=== PATIENT | male | born 1950 | race Caucasian/White ===

== ENCOUNTER 2018-12-08 14:16 | Emergency (ER) | payer OTHER ==
[~2018-12-08] VITALS: Ht 167.6 cm; Wt 70.3 kg
[~2018-12-08 14:16] MED LIST: ASPI325; ATOR20 PO; Aspirin EC81 MG; CLOP75 PO; HEARTBURN MED; HTN; ISON300 PO; LISI5; LISI5 PO; MULTI VITAMIN1 EACH PO; OMEPRAZOLE MAGN20 MG PO; SLEEPING MED; STOOL SOFTENER1 EAC2 PO; TAMS.4ER PO; VITORIN; vytorin
[2018-12-08 14:54] LABS: International Normalized Ratio 1.02; Prothrombin Time Results 10.8 Sec (9.7-11.5)
[2018-12-08] MEDS ORDERED: HYDR1TAB94 PO (15:52)
== END 2018-12-08 16:25 | disposition home or self-care (01) ==
LOC: ER 14:16
PROVIDERS: Emergency Medicine
DX: S51.011A Laceration without foreign body of right elbow, initial encounter (principal); S60.222A Contusion of left hand, initial encounter; S60.312A Abrasion of left thumb, initial encounter; S80.211A Abrasion, right knee, initial encounter; S40.812A Abrasion of left upper arm, initial encounter; S40.811A Abrasion of right upper arm, initial encounter; Z79.02 Long term (current) use of antithrombotics/antiplatelets; Z79.899 Other long term (current) drug therapy; Z79.82 Long term (current) use of aspirin; V20.4XXA Motorcycle driver injured in collision with pedestrian or animal in traffic accident, initial encounter
CPT/HCPCS: 71046; 73130; 85610; 90471; 90714; 99284-25; A9270-GY

== ENCOUNTER 2020-01-07 09:10 | Emergency (ER) | payer OTHER ==
[~2020-01-07] VITALS: Ht 167.6 cm; Wt 70.3 kg
[~2020-01-07 09:10] MED LIST changes: +HYDR1TAB94 PO
[2020-01-07] MEDS ORDERED: HYDR1TAB94 PO (09:42)
[2020-01-07] MEDS ORDERED: PRED20 PO (09:43)
== END 2020-01-07 10:19 | disposition home or self-care (01) ==
LOC: ER 09:10
DX: S49.91XA Unspecified injury of right shoulder and upper arm, initial encounter (principal); I25.810 Atherosclerosis of coronary artery bypass graft(s) without angina pectoris; Z92.89 Personal history of other medical treatment; Z99.0 Dependence on aspirator; Z95.1 Presence of aortocoronary bypass graft; X50.0XXA Overexertion from strenuous movement or load, initial encounter
CPT/HCPCS: 73030; 99283-25; J1100

== ENCOUNTER 2020-11-28 01:26 | Emergency (ER) | payer OTHER ==
[~2020-11-28] VITALS: Ht 167.6 cm; Wt 77.1 kg
[~2020-11-28 01:26] MED LIST changes: +PRED20 PO
[2020-11-28] MEDS ORDERED: EUTHYROX50 MCG (01:34)
[2020-11-28] MEDS ORDERED: ISODIN10 (01:36)
[2020-11-28] MEDS ORDERED: CYCL10 PO (01:47)
[2020-11-28] MEDS ORDERED: LIDO700A20 TOP (01:47)
== END 2020-11-28 02:30 | disposition home or self-care (01) ==
LOC: ER 01:26
DX: M54.41 Lumbago with sciatica, right side (principal); I10 Essential (primary) hypertension; I25.2 Old myocardial infarction; Z95.1 Presence of aortocoronary bypass graft; Z79.899 Other long term (current) drug therapy; Z79.890 Hormone replacement therapy; Z79.02 Long term (current) use of antithrombotics/antiplatelets
CPT/HCPCS: 96372-59; 99283-25; A9270; J1170; J1885

== ENCOUNTER 2021-07-11 19:08 | Emergency (ER) | payer OTHER ==
[~2021-07-11] VITALS: Ht 167.6 cm; Wt 74.8 kg
[~2021-07-11 19:08] MED LIST changes: +CYCL10 PO; +EUTHYROX50 MCG; +ISODIN10; +LIDO700A20 TOP
== END 2021-07-11 21:17 | disposition home or self-care (01) ==
LOC: ER 19:08
DX: S06.0X0A Concussion without loss of consciousness, initial encounter (principal); I10 Essential (primary) hypertension; I25.2 Old myocardial infarction; Z79.899 Other long term (current) drug therapy; W22.8XXA Striking against or struck by other objects, initial encounter
CPT/HCPCS: 70450; 96372; 99283-25; J1885

== ENCOUNTER 2023-04-20 13:28 | Day surgery (SDC) | payer OTHER ==
[~2023-04-20] VITALS: Ht 167.6 cm; Wt 70.3 kg
[2023-04-20] MEDS ORDERED: DOCU100 (13:49)
[2023-04-20] MEDS ORDERED: ASPIR 8181 M1 (13:49)
[2023-04-20] MEDS ORDERED: TEMA15 (13:50)
[2023-04-20] MEDS ORDERED: LORA10ER (13:50)
[2023-04-20] MEDS ORDERED: PANT20 (13:50)
[2023-04-20 15:15] VITALS: BP 97/67
--- NOTE | 2023-04-20 15:17 | NUR ---
04/20/23 1517 Silvia Whalen IV DC'D. CATH INTACT. PT TOLERATED WELL. COBAN/GAUZE IN PLACE
== END 2023-04-20 15:17 | disposition home or self-care (01) ==
LOC: ORSCSDS 13:28
PROVIDERS: Specialist
PROC: 0DJD8ZZ Inspection of Lower Intestinal Tract, Via Natural or Artificial Opening Endoscopic (ICD-10-PCS; principal; 2023-04-20 14:45)
PROC: 0DB68ZX Excision of Stomach, Via Natural or Artificial Opening Endoscopic, Diagnostic (ICD-10-PCS; principal; 2023-04-20 14:45)
DX: Z12.11 Encounter for screening for malignant neoplasm of colon (principal); Z86.010 Personal history of colon polyps; K21.9 Gastro-esophageal reflux disease without esophagitis; K29.70 Gastritis, unspecified, without bleeding; K57.30 Diverticulosis of large intestine without perforation or abscess without bleeding; K44.9 Diaphragmatic hernia without obstruction or gangrene; K64.8 Other hemorrhoids; I25.10 Atherosclerotic heart disease of native coronary artery without angina pectoris; I25.2 Old myocardial infarction; E03.9 Hypothyroidism, unspecified; E78.5 Hyperlipidemia, unspecified; E78.00 Pure hypercholesterolemia, unspecified; I10 Essential (primary) hypertension; Z79.82 Long term (current) use of aspirin; Z79.02 Long term (current) use of antithrombotics/antiplatelets; Z79.899 Other long term (current) drug therapy
CPT/HCPCS: 43239; G0105; 88305; 88342; J0461; J2001; J2405; J2704; J7120; Q9968

== ENCOUNTER 2024-01-03 06:58 | Emergency (ER) | payer OTHER ==
[~2024-01-03] VITALS: Ht 167.6 cm; Wt 70.3 kg
[~2024-01-03 06:58] MED LIST changes: +ASPIR 8181 M1; +DOCU100; +LORA10ER; +PANT20; +TEMA15
[2024-01-03] MEDS ORDERED: TEMAZEPAM1511 PO (07:20)
[2024-01-03] MEDS ORDERED: ATORVASTATIN CA20 MG PO (07:20)
[2024-01-03] MEDS ORDERED: Ativan1 MG PO (07:20)
[2024-01-03] MEDS ORDERED: PANTOPRAZOLE SO2010 PO (07:20)
[2024-01-03] MEDS ORDERED: HYDROCODONE-AC1 EA19 PO (07:20)
[2024-01-03] MEDS ORDERED: ISOSORBIDE MONO30 MG PO (07:21)
[2024-01-03] MEDS ORDERED: EUTHYROX50 MC1 PO (07:21)
[2024-01-03] MEDS ORDERED: PLAVIX75 MG PO (07:21)
[2024-01-03 07:34] LABS: BASOPHILS ABSOLUTE AUTO 0.05 K/mm3 (0.00-0.23); BASOPHILS PERCENT AUTO 1 % (0-2); EOSINOPHILS ABSOLUTE AUTO 0.11 K/mm3 (0.00-0.68); EOSINOPHILS PERCENT AUTO 2 % (0-6); Hematocrit 38.7 % (37.0-53.0); Hemoglobin 13.2 g/dL (13.5-17.5); IMMATURE GRAN ABSOLUTE AUTO 0.01 K/mm3 (0.00-0.10); IMMATURE GRAN PERCENT AUTO 0 % (0-1); LYMPHOCYTES ABSOLUTE AUTO 1.97 K/mm3 (0.84-5.20); LYMPHOCYTES PERCENT AUTO 35 % (21-46); MONOCYTES ABSOLUTE AUTO 0.57 K/mm3 (0.16-1.47); MONOCYTES PERCENT AUTO 10 % (4-13); Mean Corpuscular HGB 32.1 pg (26.0-34.0); Mean Corpuscular HGB Conc 34.1 g/dL (31.5-36.5); Mean Corpuscular Volume 94 fL (80-100); NEUTROPHILS ABSOLUTE AUTO 2.94 K/mm3 (1.96-9.15); NEUTROPHILS PERCENT AUTO 52 % (41-73); Platelet Count 145 K/mm3 (150-400); RDW Coefficient Variation 12.2 % (11.7-14.2); RDW Standard Deviation 42.2 fL (35.1-46.3); Red Blood Cell Count 4.11 M/mm3 (4.30-5.90); White Blood Cell Count 5.65 K/mm3 (4.00-11.30)
[2024-01-03 07:52] LABS: Albumin, Blood 3.4 g/dL (3.4-5.0); Albumin/Globulin Ratio 1.1 (0.8-1.8); Bilirubin, Total 0.6 mg/dL (0.1-1.0); Bun/Creatinine Ratio 19.1 (12.0-20.0); Calcium, Blood 9.2 mg/dL (8.5-10.1); Creatinine, Blood 1.15 mg/dL (0.60-1.20); Globulin, Blood 3.2 g/dL (2.2-4.0); Potassium, Blood 4.2 mmol/L (3.5-5.5); Total Protein, Blood 6.6 g/dL (6.4-8.2)
[2024-01-03] MEDS ORDERED: Mag Hydrox/AL Hydrox/Simeth 30 ML UDC PO ONE (10:15)
[2024-01-03 10:56] VITALS: BP 190/69
== END 2024-01-03 10:55 | disposition home or self-care (01) ==
LOC: ER 06:58
PROVIDERS: Student in an Organized Health Care Education/Training Program
DX: R07.89 Other chest pain (principal); K21.9 Gastro-esophageal reflux disease without esophagitis; I25.2 Old myocardial infarction; I10 Essential (primary) hypertension; Z79.02 Long term (current) use of antithrombotics/antiplatelets; Z79.899 Other long term (current) drug therapy
CPT/HCPCS: 71046; 80053; 83735; 83880; 84484; 85025; 93005; 93010; 99285-25; A9270